=== PATIENT | female | born 1960 | race Caucasian/White ===

== ENCOUNTER 2023-04-26 13:59 | Emergency (ER) | payer OTHER ==
[2023-04-26 14:11] VITALS: BP 130/72; PULSE 66; RESP 20; TEMP 98.5; BMI 30.2
[2023-04-26] MEDS ORDERED: IBUPROFEN 600 MG TABLET (FP) PO ONE ×2 (15:25→15:34)
[2023-04-26] MEDS ORDERED: ACETAMINOPHEN 500 MG TABLET (FP) PO ONE (15:25)
[2023-04-26] MEDS ORDERED: DIPHTH,PERTUSS(ACELL),TET 0.5 ML DISP.SYRIN IM ONE ×2 (15:25→15:26)
[2023-04-26] MEDS ORDERED: ACETAMINOPHEN 500 MG TABLET (FP) ONE (15:34)
== END 2023-04-26 15:37 | disposition home or self-care (01) ==
LOC: JERFT 13:59
PROC: 0HQGXZZ Repair Left Hand Skin, External Approach (ICD-10-PCS; principal; 2023-04-26)
PROC: 3E0234Z Introduction of Serum, Toxoid and Vaccine into Muscle, Percutaneous Approach (ICD-10-PCS; 2023-04-26)
DX: S61.217A Laceration without foreign body of left little finger without damage to nail, initial encounter (principal); W27.4XXA Contact with kitchen utensil, initial encounter; Y99.0 Civilian activity done for income or pay
CPT/HCPCS: 90715; 99283-25